=== PATIENT | male | born 1960 | race Two or more races ===

== ENCOUNTER 2024-10-19 16:10 | Emergency (ER) | payer OTHER ==
[~2024-10-19] VITALS: Ht 175.3 cm; Wt 81.4 kg
[2024-10-19 16:35] VITALS: TEMP 97.6
[2024-10-19 20:09] LABS: PLATELET COUNT (AUTO) 252 K/uL (150-450); RED BLOOD CELL COUNT(AUTO) 4.40 MIL/uL (4.50-5.90); RED CELL DISTRIBUTION WIDTH 13.8 % (11.5-14.5); WHITE BLOOD COUNT (AUTO) 8.1 K/uL (4.5-11.0)
[2024-10-19] MEDS: ONDANSETRON HCL 4 MG/2 ML VIAL IVP ONE (20:09)
[2024-10-19] MEDS: SODIUM CHLORIDE 0.9% 1,000 ML IV ONE (20:09)
[2024-10-19 20:17] LABS: CALCIUM, TOTAL 8.7 mg/dL (8.8-10.5); CREATININE 0.92 mg/dL (0.60-1.30); GLOMERULAR FILTR. RATE CALC > 60 mL/min (>60); GLUCOSE,RANDOM 116 mg/dL (70-110); SODIUM SERUM 139 mmol/L (136-145); UREA NITROGEN, BLOOD 19 mg/dL (7-18)
[2024-10-19 20:24] LABS: ASPARTATE AMINOTRANSFERASE 105.0 U/L (15-37); CREATINE KINASE, TOTAL ONLY 121.0 U/L (39-308); TOTAL PROTEIN, SERUM 6.8 g/dL (6.4-8.2)
[2024-10-19 20:28] LABS: TROPONIN I-HIGH SENSITIVITY 6 ng/L (<76)
[2024-10-19 20:30] LABS: APPEARANCE,URINE CLEAR (CLEAR); GLUCOSE, URINE (UA) NEGATIVE (NEGATIVE); LEUKOCYTE ESTERASE ,URINE NEGATIVE (NEGATIVE); NITRATE,URINE NEGATIVE (NEGATIVE); OCCULT BLOOD,URINE NEGATIVE (NEGATIVE); SPECIFIC GRAVITIY, URINE 1.006 (1.003-1.030)
[2024-10-19 20:55] LABS: SQUAMOUS EPITHELIAL CELL,UR Few /LPF (None Seen)
[2024-10-19 22:12] VITALS: BP 103/84; PULSE 60; RESP 18; O2SAT 95
[2024-10-19] MEDS: HYDROCODONE/ACETAMINOPHEN 5-325 MG TABLET PO ONE (22:59)
== END 2024-10-19 23:46 ==
LOC: EMS 16:10
DX: S22.42XA Multiple fractures of ribs, left side, initial encounter for closed fracture (principal); S42.102A Fracture of unspecified part of scapula, left shoulder, initial encounter for closed fracture; S50.812A Abrasion of left forearm, initial encounter; J45.909 Unspecified asthma, uncomplicated; V23.49XA Other motorcycle driver injured in collision with car, pick-up truck or van in traffic accident, initial encounter; Y93.89 Activity, other specified; Y92.89 Other specified places as the place of occurrence of the external cause; Y99.8 Other external cause status
CPT/HCPCS: 99285; 96374; 96361; 76700; 71045; 96375; 80048; 80076; 81001; 82550; 83690; 84484; 85025; 36415; J1171; J2405; J7030